=== PATIENT | male | born 1950 | race Caucasian/White ===

== ENCOUNTER 2020-11-14 07:51 | Inpatient (IN) | payer BC, MEDICARE ==
[~2020-11-14] VITALS: Ht 172.7 cm; Wt 116.7 kg
[2020-11-14] MEDS ORDERED: SODIUM CHLORIDE 0.9% 1,000 ML IVB ONE (08:00)
[2020-11-14] MEDS ORDERED: ACETAMINOPHEN 325 MG TAB PO ONE (08:00)
[2020-11-14] MEDS ORDERED: SODIUM CHLORIDE 0.9% 1,000 ML IV ONE (08:00)
[2020-11-14 08:33] LABS: Basophils # (auto) 0.1 10 ^3/uL (0-0.2); Basophils % (auto) 0.4 % (0.0-2.0); Eosinophils # (auto) 0 10 ^3/uL (0-0.8); Eosinophils % (auto) 0.1 % (0.0-7.0); Hematocrit 36.9 % (41.0-53.0); Hemoglobin 13.1 g/dL (13.5-17.5); Lymphocytes # (auto) 0.8 10 ^3/uL (0.4-5.4); Mean Corpuscular Hemoglobin 29.8 pg (28.0-32.0); Mean Corpuscular Hgb Conc. 35.4 g/dL (32.0-36.0); Mean Corpuscular Volume 84.1 fL (80.0-100.0); Monocytes # (auto) 1.9 10 ^3/uL (0-1.3); Monocytes % (auto) 11.4 % (0.0-12.0); Neutrophils % (auto) 83.1 % (37.0-80.0); Nucleated Red Blood Cells % 0.2 %; Red Blood Cells 4.39 10^6/uL (4.5-5.90); Red Cell Distribution Width 14.2 % (11.8-14.3); White Blood Cell 16.8 10^3/uL (4.4-10.8)
[2020-11-14 08:47] LABS: Albumin 3.3 g/dL (3.4-5.0); BUN/Creatinine Ratio 16.6; Calcium 8.8 mg/dL (8.5-10.1); Potassium 4.2 mmol/L (3.5-5.1)
[2020-11-14 08:49] LABS: Lactic Acid w/Reflex 2.1 mmol/L (0.4-2.0)
[2020-11-14 08:57] LABS: Bilirubin, Total 2.1 mg/dL (0.2-1.0); Total Protein 8.2 g/dL (6.4-8.2)
[2020-11-14] MEDS ORDERED: cefTRIAXone 1GM/50ML D5W 50 ML IV ONE (09:00)
[2020-11-14] MEDS ORDERED: ENOXAPARIN SOD 120 MG/0.8 ML SYRINGE SC ONE (09:30)
[2020-11-14] MEDS ORDERED: HYDROcodone-ACET 5/325MG TAB PO PRN (10:30)
[2020-11-14] MEDS ORDERED: MORPHINE SULFATE INJECTION 2 MG/ML SYRG IV PRN ×3 (10:30)
[2020-11-14] MEDS ORDERED: ACETAMINOPHEN 500 MG TAB PO PRN (10:30)
[2020-11-14] MEDS ORDERED: NITROGLYCERIN 0.4 MG SL TAB SL PRN (10:30)
[2020-11-14] MEDS ORDERED: ONDANSETRON HCL 4 MG/2 ML VIAL IV PRN ×2 (10:30)
[2020-11-14 11:51] LABS: Urine Bacteria NONE SEEN /hpf (None Seen); Urine Blood TRACE /uL (Negative); Urine Mucus FEW (None Seen); Urine Specific Gravity 1.025 (1.001-1.035); Urine WBC 6 /hpf (0 - 3)
[2020-11-14] MEDS: SODIUM CHLORIDE 0.9% 1,000 ML IV SCH (12:02)
[2020-11-14] MEDS: OXYCODONE W/ ACETAMINOPHEN 5/325MG TABLET PO PRN (14:20)
[2020-11-14 17:00] VITALS: BP 109/63
[2020-11-14] MEDS: ACETAMINOPHEN 500 MG TAB PO PRN (21:46)
[2020-11-14] MEDS: ATORVASTATIN 20 MG TAB PO SCH (21:46)
[2020-11-14] MEDS: ENOXAPARIN SOD 120 MG/0.8 ML SYRINGE SC SCH (21:47)
[2020-11-14] MEDS: DOCUSATE SOD 100 MG CAP PO SCH (21:47)
[2020-11-14] MEDS: MORPHINE SULFATE INJECTION 2 MG/ML SYRG IV PRN (21:52)
[2020-11-14 22:00] VITALS: BP 150/98
[2020-11-14] MEDS: METOPROLOL TARTRATE 25 MG TAB PO SCH (22:45)
[2020-11-15] MEDS ORDERED: FLEET ENEMA(ADULT) 135 ML PR ONE (00:30)
[2020-11-15] MEDS ORDERED: VANCOMYCIN PER PHARMACY 0 MG IV SCH (00:30)
[2020-11-15] MEDS ORDERED: VANCOMYCIN 1GM/250ML 250 ML IV ONE (00:45)
[2020-11-15] MEDS: SODIUM CHLORIDE 0.9% 1,000 ML IV SCH ×5 (01:22→20:12)
[2020-11-15 05:00] VITALS: BP 109/64
[2020-11-15 05:05] LABS: Basophils # (auto) 0 10 ^3/uL (0-0.2); Basophils % (auto) 0.3 % (0.0-2.0); Eosinophils # (auto) 0.1 10 ^3/uL (0-0.8); Eosinophils % (auto) 0.5 % (0.0-7.0); Hematocrit 33.8 % (41.0-53.0); Mean Corpuscular Hemoglobin 29.8 pg (28.0-32.0); Mean Corpuscular Hgb Conc. 35.6 g/dL (32.0-36.0); Mean Corpuscular Volume 83.7 fL (80.0-100.0); Monocytes # (auto) 2.2 10 ^3/uL (0-1.3); Monocytes % (auto) 14.6 % (0.0-12.0); Neutrophils # (auto) 11.6 10 ^3/uL (1.6-8.6); Neutrophils % (auto) 77.6 % (37.0-80.0); Red Blood Cells 4.04 10^6/uL (4.5-5.90); Red Cell Distribution Width 14.1 % (11.8-14.3); White Blood Cell 14.9 10^3/uL (4.4-10.8)
[2020-11-15] MEDS: OXYCODONE W/ ACETAMINOPHEN 5/325MG TABLET PO PRN ×2 (05:23→17:15)
[2020-11-15 05:24] LABS: BUN/Creatinine Ratio 20.2; Calcium 8.3 mg/dL (8.5-10.1); Potassium 3.7 mmol/L (3.5-5.1)
[2020-11-15 05:28] LABS: Cholesterol 125 mg/dL (< 200); HDL Cholesterol 31 mg/dL (40-59); LDL Cholesterol 78 mg/dL (< 100); Triglycerides 119 mg/dL (< 150)
[2020-11-15 08:30] VITALS: BP 128/66
[2020-11-15] MEDS: ENOXAPARIN SOD 120 MG/0.8 ML SYRINGE SC SCH ×2 (09:44→22:35)
[2020-11-15] MEDS: cefTRIAXone 1GM/50ML D5W 50 ML IV SCH (09:44)
[2020-11-15] MEDS: ASPirin-EC 81 mg tab PO SCH (09:44)
[2020-11-15] MEDS: FAMOTIDINE 20 MG TAB PO SCH (09:45)
[2020-11-15] MEDS: METOPROLOL TARTRATE 25 MG TAB PO SCH ×2 (09:47→22:35)
[2020-11-15] MEDS: DOCUSATE SOD 100 MG CAP PO SCH ×2 (09:47→22:35)
[2020-11-15] MEDS: LISINOPRIL 10 MG TAB PO SCH (09:48)
[2020-11-15] MEDS ORDERED: ATEN50TA PO (10:15)
[2020-11-15] MEDS ORDERED: ASPI1TAB20 PO (10:15)
[2020-11-15] MEDS ORDERED: LEVO175T66 PO (10:15)
[2020-11-15] MEDS ORDERED: OXY5T PO (10:15)
[2020-11-15] MEDS ORDERED: NAPR375T27 PO (10:15)
[2020-11-15] MEDS ORDERED: TRIA1CAP5 PO (10:16)
[2020-11-15] MEDS: VANCOMYCIN 1GM/250ML 250 ML IV SCH (14:08)
[2020-11-15 16:59] VITALS: BP 164/85
[2020-11-15] MEDS: BACITRACIN TOP OINT 1 UD PKG TOP SCH (17:12)
[2020-11-15 22:00] VITALS: BP 130/73
[2020-11-15] MEDS: ATORVASTATIN 20 MG TAB PO SCH (22:35)
[2020-11-16] MEDS ORDERED: DIGOXIN (250MCG/ML) 2 ML AMPULE IV ONE (00:15)
[2020-11-16] MEDS: VANCOMYCIN 1GM/250ML 250 ML IV SCH ×2 (00:47→13:00)
[2020-11-16 05:00] VITALS: BP 131/70
[2020-11-16] MEDS: SODIUM CHLORIDE 0.9% 1,000 ML IV SCH ×3 (07:31→22:16)
[2020-11-16] MEDS: OXYCODONE W/ ACETAMINOPHEN 5/325MG TABLET PO PRN ×3 (08:02→22:06)
[2020-11-16 08:27] VITALS: BP 136/70
[2020-11-16] MEDS: cefTRIAXone 1GM/50ML D5W 50 ML IV SCH (09:00)
[2020-11-16] MEDS: DOCUSATE SOD 100 MG CAP PO SCH ×2 (10:01→22:07)
[2020-11-16] MEDS: ASPirin-EC 81 mg tab PO SCH (10:08)
[2020-11-16] MEDS: DIGOXIN 0.125 MG TAB PO SCH (10:09)
[2020-11-16] MEDS: METOPROLOL TARTRATE 25 MG TAB PO SCH ×2 (10:10→22:08)
[2020-11-16] MEDS: FAMOTIDINE 20 MG TAB PO SCH (10:10)
[2020-11-16] MEDS: ENOXAPARIN SOD 100 MG/1 ML SYRINGE SC SCH ×2 (10:11→22:15)
[2020-11-16] MEDS: LISINOPRIL 10 MG TAB PO SCH (10:11)
[2020-11-16] MEDS: BACITRACIN TOP OINT 1 UD PKG TOP SCH (10:12)
[2020-11-16] MEDS ORDERED: AMIODARONE HCL 200 MG TAB PO ONE (10:15)
[2020-11-16 12:28] VITALS: BP 118/67
[2020-11-16] MEDS: MORPHINE SULFATE INJECTION 2 MG/ML SYRG IV PRN (13:30)
[2020-11-16 17:32] VITALS: BP 107/59
[2020-11-16 22:00] VITALS: BP 120/74
[2020-11-16] MEDS: ATORVASTATIN 20 MG TAB PO SCH (22:07)
[2020-11-16] MEDS: AMIODARONE HCL 200 MG TAB PO SCH (22:08)
[2020-11-17] MEDS ORDERED: VANCOMYCIN 1GM/250ML 250 ML IV SCH
[2020-11-17 04:51] LABS: Basophils # (auto) 0.1 10 ^3/uL (0-0.2); Basophils % (auto) 1.2 % (0.0-2.0); Eosinophils # (auto) 0.3 10 ^3/uL (0-0.8); Eosinophils % (auto) 2.6 % (0.0-7.0); Hematocrit 32.4 % (41.0-53.0); Hemoglobin 11.4 g/dL (13.5-17.5); Lymphocytes # (auto) 1.6 10 ^3/uL (0.4-5.4); Lymphocytes % (auto) 13.1 % (10.0-50.0); Mean Corpuscular Hemoglobin 29.7 pg (28.0-32.0); Mean Corpuscular Hgb Conc. 35.2 g/dL (32.0-36.0); Mean Corpuscular Volume 84.5 fL (80.0-100.0); Monocytes # (auto) 1.8 10 ^3/uL (0-1.3); Monocytes % (auto) 14.8 % (0.0-12.0); Neutrophils # (auto) 8.3 10 ^3/uL (1.6-8.6); Neutrophils % (auto) 68.3 % (37.0-80.0); Red Blood Cells 3.83 10^6/uL (4.5-5.90); Red Cell Distribution Width 14.1 % (11.8-14.3); White Blood Cell 12.1 10^3/uL (4.4-10.8)
[2020-11-17 05:00] VITALS: BP 130/79
[2020-11-17] MEDS: OXYCODONE W/ ACETAMINOPHEN 5/325MG TABLET PO PRN ×3 (05:15→22:25)
[2020-11-17] MEDS: SODIUM CHLORIDE 0.9% 1,000 ML IV SCH ×2 (06:06→11:40)
[2020-11-17 09:00] VITALS: BP 118/75
[2020-11-17] MEDS ORDERED: LACTULOSE 20Gm/30ML SOLN PO ONE (09:45)
[2020-11-17] MEDS: DOCUSATE SOD 100 MG CAP PO SCH ×2 (10:11→21:59)
[2020-11-17] MEDS: ASPirin-EC 81 mg tab PO SCH (10:11)
[2020-11-17] MEDS: AMIODARONE HCL 200 MG TAB PO SCH ×2 (10:11→21:59)
[2020-11-17] MEDS: DIGOXIN 0.125 MG TAB PO SCH (10:12)
[2020-11-17] MEDS: METOPROLOL TARTRATE 25 MG TAB PO SCH ×2 (10:12→22:01)
[2020-11-17] MEDS: FAMOTIDINE 20 MG TAB PO SCH (10:12)
[2020-11-17] MEDS: LISINOPRIL 10 MG TAB PO SCH (10:13)
[2020-11-17] MEDS: BACITRACIN TOP OINT 1 UD PKG TOP SCH (10:13)
[2020-11-17] MEDS: ENOXAPARIN SOD 100 MG/1 ML SYRINGE SC SCH ×2 (10:13→22:01)
[2020-11-17 13:00] VITALS: BP 155/85
[2020-11-17] MEDS: ceFAZolin 2 GM in D5W 5% 100 ML IV SCH ×2 (14:01→21:58)
[2020-11-17 16:22] VITALS: BP 151/88
[2020-11-17 22:00] VITALS: BP 144/96
[2020-11-17] MEDS: ATORVASTATIN 20 MG TAB PO SCH (22:00)
[2020-11-18 05:00] VITALS: BP 150/83
[2020-11-18] MEDS: ceFAZolin 2 GM in D5W 5% 100 ML IV SCH ×3 (06:30→22:21)
[2020-11-18 09:00] VITALS: BP 145/76
[2020-11-18] MEDS: SODIUM CHLORIDE 0.9% 1,000 ML IV SCH ×4 (09:26→22:20)
[2020-11-18] MEDS: AMIODARONE HCL 200 MG TAB PO SCH ×2 (09:27→22:29)
[2020-11-18] MEDS: METOPROLOL TARTRATE 25 MG TAB PO SCH ×2 (09:27→22:30)
[2020-11-18] MEDS: ASPirin-EC 81 mg tab PO SCH (09:27)
[2020-11-18] MEDS: DOCUSATE SOD 100 MG CAP PO SCH ×2 (09:27→22:21)
[2020-11-18] MEDS: LISINOPRIL 10 MG TAB PO SCH (09:28)
[2020-11-18] MEDS: FAMOTIDINE 20 MG TAB PO SCH (09:28)
[2020-11-18] MEDS: ENOXAPARIN SOD 100 MG/1 ML SYRINGE SC SCH ×2 (09:28→22:29)
[2020-11-18] MEDS: OXYCODONE W/ ACETAMINOPHEN 5/325MG TABLET PO PRN ×2 (09:35→17:35)
[2020-11-18] MEDS: BACITRACIN TOP OINT 1 UD PKG TOP SCH (10:26)
[2020-11-18 13:00] VITALS: BP 141/75
[2020-11-18 17:00] VITALS: BP 156/91
[2020-11-18 21:36] VITALS: BP 136/70
[2020-11-18] MEDS: ATORVASTATIN 20 MG TAB PO SCH (22:29)
[2020-11-19] MEDS: MORPHINE SULFATE INJECTION 2 MG/ML SYRG IV PRN (02:02)
[2020-11-19] MEDS: OXYCODONE W/ ACETAMINOPHEN 5/325MG TABLET PO PRN ×3 (02:09→17:51)
[2020-11-19 04:32] VITALS: BP 133/68
[2020-11-19] MEDS: SODIUM CHLORIDE 0.9% 1,000 ML IV SCH ×3 (05:09→18:31)
[2020-11-19] MEDS: ceFAZolin 2 GM in D5W 5% 100 ML IV SCH ×3 (06:14→21:59)
[2020-11-19 09:00] VITALS: BP 150/85
[2020-11-19] MEDS: ENOXAPARIN SOD 100 MG/1 ML SYRINGE SC SCH ×2 (09:01→22:00)
[2020-11-19] MEDS: DOCUSATE SOD 100 MG CAP PO SCH ×2 (09:01→21:59)
[2020-11-19] MEDS: ASPirin-EC 81 mg tab PO SCH (09:01)
[2020-11-19] MEDS: FAMOTIDINE 20 MG TAB PO SCH (09:01)
[2020-11-19] MEDS: AMIODARONE HCL 200 MG TAB PO SCH ×2 (09:10→21:59)
[2020-11-19] MEDS: METOPROLOL TARTRATE 25 MG TAB PO SCH ×2 (09:10→22:00)
[2020-11-19] MEDS: LISINOPRIL 10 MG TAB PO SCH (09:11)
[2020-11-19] MEDS: BACITRACIN TOP OINT 1 UD PKG TOP SCH (10:00)
[2020-11-19] MEDS: ACETAMINOPHEN 500 MG TAB PO PRN (12:41)
[2020-11-19 13:00] VITALS: BP 143/70
[2020-11-19 17:00] VITALS: BP 155/82
[2020-11-19 20:00] VITALS: BP 157/84
[2020-11-19 22:00] VITALS: BP 157/84
[2020-11-19] MEDS: ATORVASTATIN 20 MG TAB PO SCH (22:00)
[2020-11-20] MEDS: SODIUM CHLORIDE 0.9% 1,000 ML IV SCH ×4 (00:38→19:40)
[2020-11-20] MEDS: OXYCODONE W/ ACETAMINOPHEN 5/325MG TABLET PO PRN ×4 (01:18→21:05)
[2020-11-20 05:00] VITALS: BP 130/79
[2020-11-20] MEDS: ceFAZolin 2 GM in D5W 5% 100 ML IV SCH (06:12)
[2020-11-20] MEDS ORDERED: ADENOSINE 99 MG in GIVE UN-DILUTED 0 ML IV STA (08:35)
[2020-11-20] MEDS: ASPirin-EC 81 mg tab PO SCH (08:54)
[2020-11-20] MEDS: DOCUSATE SOD 100 MG CAP PO SCH ×2 (08:54→21:38)
[2020-11-20] MEDS: FAMOTIDINE 20 MG TAB PO SCH (08:54)
[2020-11-20] MEDS: AMIODARONE HCL 200 MG TAB PO SCH ×2 (08:55→21:39)
[2020-11-20] MEDS: METOPROLOL TARTRATE 25 MG TAB PO SCH ×2 (08:55→21:39)
[2020-11-20] MEDS: LISINOPRIL 10 MG TAB PO SCH (08:56)
[2020-11-20] MEDS: ENOXAPARIN SOD 100 MG/1 ML SYRINGE SC SCH ×3 (08:59→21:44)
[2020-11-20] MEDS: BACITRACIN TOP OINT 1 UD PKG TOP SCH (08:59)
[2020-11-20 09:00] VITALS: BP 169/87
[2020-11-20 12:07] LABS: Basophils # (auto) 0.1 10 ^3/uL (0-0.2); Eosinophils # (auto) 0.2 10 ^3/uL (0-0.8); Eosinophils % (auto) 1.3 % (0.0-7.0); Hematocrit 30.5 % (41.0-53.0); Hemoglobin 10.4 g/dL (13.5-17.5); Lymphocytes # (auto) 1.4 10 ^3/uL (0.4-5.4); Lymphocytes % (auto) 9.8 % (10.0-50.0); Mean Corpuscular Hemoglobin 28.8 pg (28.0-32.0); Mean Corpuscular Hgb Conc. 34.1 g/dL (32.0-36.0); Mean Corpuscular Volume 84.4 fL (80.0-100.0); Monocytes # (auto) 1.3 10 ^3/uL (0-1.3); Monocytes % (auto) 9.4 % (0.0-12.0); Neutrophils # (auto) 11.1 10 ^3/uL (1.6-8.6); Neutrophils % (auto) 78.5 % (37.0-80.0); Red Blood Cells 3.62 10^6/uL (4.5-5.90); Red Cell Distribution Width 14.4 % (11.8-14.3); White Blood Cell 14.2 10^3/uL (4.4-10.8)
[2020-11-20 12:26] LABS: Albumin 2.4 g/dL (3.4-5.0); Calcium 8.5 mg/dL (8.5-10.1); Potassium 4.2 mmol/L (3.5-5.1)
[2020-11-20 12:29] LABS: BUN/Creatinine Ratio 10.6; Bilirubin, Total 0.6 mg/dL (0.2-1.0); Total Protein 7.3 g/dL (6.4-8.2)
[2020-11-20] MEDS: levoFLOXacin 500MG 100 ML IV SCH (12:57)
[2020-11-20 13:00] VITALS: BP 164/83
[2020-11-20] MEDS: cloNIDine HCL 0.1 MG TAB PO PRN (13:04)
[2020-11-20] MEDS ORDERED: ATENOLOL 50 MG TAB PO ONE (15:30)
[2020-11-20 17:00] VITALS: BP 137/65
[2020-11-20] MEDS: ACETAMINOPHEN 500 MG TAB PO PRN (18:47)
[2020-11-20] MEDS: ATORVASTATIN 20 MG TAB PO SCH (21:39)
[2020-11-20 22:00] VITALS: BP 166/77
[2020-11-21] MEDS: SODIUM CHLORIDE 0.9% 1,000 ML IV SCH ×2 (02:44→09:00)
[2020-11-21] MEDS: OXYCODONE W/ ACETAMINOPHEN 5/325MG TABLET PO PRN ×3 (03:24→17:50)
[2020-11-21 05:00] VITALS: BP 135/69
[2020-11-21] MEDS: LEVOTHYROXINE SODIUM 50 MCG TAB PO SCH (06:25)
[2020-11-21 09:00] VITALS: BP 165/81
[2020-11-21] MEDS: DOCUSATE SOD 100 MG CAP PO SCH ×2 (09:05→21:59)
[2020-11-21] MEDS: LISINOPRIL 10 MG TAB PO SCH (09:09)
[2020-11-21] MEDS: ASPirin-EC 81 mg tab PO SCH (09:09)
[2020-11-21] MEDS: METOPROLOL TARTRATE 25 MG TAB PO SCH (09:09)
[2020-11-21] MEDS: FAMOTIDINE 20 MG TAB PO SCH (09:10)
[2020-11-21] MEDS: AMIODARONE HCL 200 MG TAB PO SCH ×2 (09:10→22:00)
[2020-11-21] MEDS: ACETAMINOPHEN 500 MG TAB PO PRN (09:10)
[2020-11-21] MEDS: ENOXAPARIN SOD 100 MG/1 ML SYRINGE SC SCH (09:12)
[2020-11-21] MEDS: BACITRACIN TOP OINT 1 UD PKG TOP SCH ×2 (09:12→09:28)
[2020-11-21] MEDS: levoFLOXacin 500MG 100 ML IV SCH (09:13)
[2020-11-21] MEDS ORDERED: ATENOLOL 50 MG TAB PO ONE (10:15)
[2020-11-21] MEDS: LACTULOSE 20Gm/30ML SOLN PO ONE ×2 (11:38→15:08)
[2020-11-21 13:00] VITALS: BP 156/79
[2020-11-21 17:00] VITALS: BP 187/95
[2020-11-21] MEDS: cloNIDine HCL 0.1 MG TAB PO PRN (17:50)
[2020-11-21 20:04] LABS: Uric Acid 6.2 mg/dL (3.5-7.2)
[2020-11-21 20:30] LABS: CRP High Sensitivity > 19.0 mg/dL (< 0.3)
[2020-11-21] MEDS: COLCHICINE 0.6 MG CAP PO SCH (21:59)
[2020-11-21 22:00] VITALS: BP 160/64
[2020-11-21] MEDS: ATORVASTATIN 20 MG TAB PO SCH (22:00)
[2020-11-21] MEDS: APIXABAN 5 MG TAB PO SCH (22:00)
[2020-11-22] MEDS: OXYCODONE W/ ACETAMINOPHEN 5/325MG TABLET PO PRN ×2 (00:10→18:43)
[2020-11-22 05:00] VITALS: BP 187/85
[2020-11-22] MEDS: LEVOTHYROXINE SODIUM 50 MCG TAB PO SCH (06:25)
[2020-11-22] MEDS: cloNIDine HCL 0.1 MG TAB PO PRN (06:26)
[2020-11-22 09:00] VITALS: BP 161/80
[2020-11-22] MEDS: BACITRACIN TOP OINT 1 UD PKG TOP SCH (10:00)
[2020-11-22] MEDS: levoFLOXacin 500MG 100 ML IV SCH (10:26)
[2020-11-22] MEDS: APIXABAN 5 MG TAB PO SCH ×2 (10:31→21:09)
[2020-11-22] MEDS: AMIODARONE HCL 200 MG TAB PO SCH ×3 (10:31→21:10)
[2020-11-22] MEDS: ASPirin-EC 81 mg tab PO SCH (10:31)
[2020-11-22] MEDS: DOCUSATE SOD 100 MG CAP PO SCH ×2 (10:31→21:09)
[2020-11-22] MEDS: COLCHICINE 0.6 MG CAP PO SCH ×2 (10:31→21:07)
[2020-11-22] MEDS: FAMOTIDINE 20 MG TAB PO SCH (10:32)
[2020-11-22] MEDS: ATENOLOL 50 MG TAB PO SCH (10:32)
[2020-11-22] MEDS ORDERED: ALUM & MAG HYDROX-SIMETH LIQ(MAALOX) 30 ML PO ONE (11:00)
[2020-11-22] MEDS: Ensure HIGH Protein Chocolate 8oz Bottle PO SCH ×2 (12:14→17:47)
[2020-11-22] MEDS: ACETAMINOPHEN 500 MG TAB PO PRN (12:37)
[2020-11-22 13:00] VITALS: BP 151/79
[2020-11-22 17:00] VITALS: BP 158/88
[2020-11-22] MEDS ORDERED: methylPREDNISolone SOD SUCC 40 MG/ML VL IV ONE (17:45)
[2020-11-22] MEDS: ATORVASTATIN 20 MG TAB PO SCH (21:07)
[2020-11-22 22:00] VITALS: BP 150/86
[2020-11-23 05:00] VITALS: BP 187/99
[2020-11-23] MEDS: cloNIDine HCL 0.1 MG TAB PO PRN (05:08)
[2020-11-23] MEDS: LEVOTHYROXINE SODIUM 50 MCG TAB PO SCH (06:29)
[2020-11-23] MEDS: Ensure HIGH Protein Chocolate 8oz Bottle PO SCH ×2 (08:03→12:00)
[2020-11-23 09:00] VITALS: BP 158/82
[2020-11-23] MEDS: AMIODARONE HCL 200 MG TAB PO SCH (10:00)
[2020-11-23] MEDS: levoFLOXacin 500MG 100 ML IV SCH (10:23)
[2020-11-23] MEDS: APIXABAN 5 MG TAB PO SCH (10:24)
[2020-11-23] MEDS: ASPirin-EC 81 mg tab PO SCH (10:24)
[2020-11-23] MEDS: COLCHICINE 0.6 MG CAP PO SCH (10:24)
[2020-11-23] MEDS: FAMOTIDINE 20 MG TAB PO SCH (10:24)
[2020-11-23] MEDS: DOCUSATE SOD 100 MG CAP PO SCH (10:24)
[2020-11-23] MEDS: BACITRACIN TOP OINT 1 UD PKG TOP SCH (10:25)
[2020-11-23] MEDS: ATENOLOL 50 MG TAB PO SCH (10:25)
[2020-11-23 11:12] VITALS: BP 158/82
[2020-11-23 13:00] VITALS: BP 149/85
== END 2020-11-23 13:37 | disposition home or self-care (01) | DRG 871 ==
LOC: ER 07:51 → TELE 10:25 → TELE-CENTR 15:50
PROVIDERS: ADMIT Nurse Practitioner Acute Care; ATTEND Family Medicine
DX: A41.01 Sepsis due to Methicillin susceptible Staphylococcus aureus (principal); G93.41 Metabolic encephalopathy; I21.A1 Myocardial infarction type 2; N17.0 Acute kidney failure with tubular necrosis; E87.1 Hypo-osmolality and hyponatremia; N12 Tubulo-interstitial nephritis, not specified as acute or chronic; G83.4 Cauda equina syndrome; I13.0 Hypertensive heart and chronic kidney disease with heart failure and stage 1 through stage 4 chronic kidney disease, or unspecified chronic kidney disease; I50.32 Chronic diastolic (congestive) heart failure; E07.9 Disorder of thyroid, unspecified; E66.9 Obesity, unspecified; E78.5 Hyperlipidemia, unspecified; E86.0 Dehydration; I48.91 Unspecified atrial fibrillation; L40.9 Psoriasis, unspecified; L97.529 Non-pressure chronic ulcer of other part of left foot with unspecified severity; M10.9 Gout, unspecified; N18.9 Chronic kidney disease, unspecified; I48.0 Paroxysmal atrial fibrillation; I27.20 Pulmonary hypertension, unspecified; Z79.01 Long term (current) use of anticoagulants; Z68.35 Body mass index [BMI] 35.0-35.9, adult; Z82.49 Family history of ischemic heart disease and other diseases of the circulatory system; Z87.440 Personal history of urinary (tract) infections
CPT/HCPCS: 36415; 51702; 70450; 71045; 73630; 74176; 76700; 80048; 80053; 80061; 80202; 81001; 83036; 83605; 83735; 83880; 84132; 84443; 84484; 84550; 85025; 85049; 85652; 86141; 87040; 87077; 87086; 87186; 87205; 87426; 89051; 89060; 93005; 93306; 93925; 96361; 96365; 96372; G0378; J0153; J0690; J0696; J1956; J2405; J7060